=== PATIENT | female | born 1995 | race Two or more races ===

== ENCOUNTER 2016-09-12 18:18 | Outpatient (CLI) | payer OTHER ==
[2016-09-12 19:44] LABS: APPEARANCE,URINE CLOUDY; BILIRUBIN,URINE NEGATIVE (NEGATIVE); GLUCOSE, URINE NEGATIVE (NEGATIVE); KETONES,URINE NEGATIVE (NEGATIVE); LEUKOCYTE ESTERASE,URINE LARGE (NEGATIVE); NITRITE,URINE NEGATIVE (NEGATIVE); PROTEIN,URINE NEGATIVE (NEGATIVE); URINE SPECIFIC GRAVITY 1.021; UROBILINOGEN,URINE NEGATIVE mg/dL (<2.0)
[2016-09-12 19:46] LABS: ABSOLUTE BASOPHILS # (AUTO) 0.1 10^3/uL (0.0-0.2); ABSOLUTE EOSINOPHILS # (AUTO) 0.2 10^3/uL (0.0-0.6); ABSOLUTE LYMPHOCYTES (AUTO) 2.1 10^3/uL (0.5-4.7); ABSOLUTE MONOCYTES (AUTO) 1.1 10^3/uL (0.1-1.4); ABSOLUTE NEUT (AUTO) 7.5 10^3/uL (1.7-8.2); BASOPHILS % (AUTO) 0.6 % (0-2); EOSINOPHILS % (AUTO) 2.2 % (0-6); HEMATOCRIT 31.3 % (36.0-47.0); HEMOGLOBIN 10.2 g/dL (12.0-15.5); HGB HCT DIFFERENCE -0.7; MEAN CORPUSCULAR HEMOGLOBIN 27.5 pg (27.0-33.4); MEAN CORPUSCULAR HGB CONC 32.5 g/dL (32.0-36.0); MEAN CORPUSCULAR VOLUME 85 fl (80-97); MONOCYTES % (AUTO) 10.3 % (3-13); RED CELL DISTRIBUTION WIDTH 14.4 % (11.5-14.0); SEGMENTED NEUTROPHILS % (AUTO) 67.9 % (42-78); WHITE BLOOD COUNT 11.1 10^3/uL (4.0-10.5)
[2016-09-12 19:52] LABS: URINE BARBITURATES SCREEN NEGATIVE; URINE METHADONE SCREEN NEGATIVE; URINE OPIATES LOW NEGATIVE; URINE PHENCYCLIDINE SCREEN NEGATIVE
--- NOTE | 2016-09-12 20:01 | L&D Flow Sheet ---
LD Flowsheet Datetime Report Generated by CPN: 09/12/2016 20:00 Datetime: 09/12/2016 19:39 Vital Signs NBP Sys/Milena/Mean (mmHg): 106 (QS system process) : 58 (QS system process) : 76 (QS system process) Pulse: 84 (QS system process) Datetime: 09/12/2016 19:25 Communication Communication Comments: Report to A. 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 Orders received for no PNC labs and stat cervical length. (Mary Vitrano, RN) Datetime: 09/12/2016 18:42 Monitor Interventions for UA: Soso Adjusted (Mary Vitrano, RN) Frequency (min): Irregular cramping, unsure of timing (Mary Vitrano, RN) Assessment A Monitor Mode: External US (Mary Vitrano, RN) FHR Baseline Rate : 145 (Mary Vitrano, RN) Variability: Moderate 6-25 bpm (Mary Vitrano, RN) Comments: US d/c; FHTs WNL for gestational age (Mary Vitrano, RN) Pain Pain Scale: 2 (Mary Vitrano, RN) Pain Presence: Intermittent (Mary Vitrano, RN) Pain Type: Cramping (Mary Vitrano, RN) Pain Location: Abdomen (Mary Vitrano, RN) Pain Coping: Pt resting comfortably (Mary Vitrano, RN) Vaginal Exam Membrane Status: Intact (Mary Vitrano, RN) Vaginal Bleeding: None (Mary Vitrano, RN) Maternal Assessment Level of Consciousness: Fully Conscious (Mary Vitrano, RN) DTR's/Clonus: DTRs 2+; No Clonus (Mary Vitrano, RN) Headache: Denies (Mary Vitrano, RN) Breath Sounds, Left: Clear and Equal (Mary Vitrano, RN) Breath Sounds, Right: Clear and Equal (Mary Vitrano, RN) Nausea/Vomiting: Denies (Mary Vitrano, RN) RUQ Epigastric Pain: Denies (Mary Vitrano, RN) Datetime: 09/12/2016 18:39 Vital Signs NBP Sys/Milena/Mean (mmHg): 116 (QS system process) : 67 (QS system process) : 86 (QS system process) Pulse: 82 (QS system process) Datetime: 09/12/2016 18:37 Patient Care Patient Position/Activity: Semi-Fowlers (Mary Vitrano, RN) I/O Interventions: Clear Liquids Given (Mary Vitrano, RN) Teaching Instructional Method: Verbal; Patient Instructed; Family/Support Person Instructed; Verbalized Understanding (Mary Vitrano, RN) Plan of Care: Plan of Care Discussed (Mary Beard RN) Unit Routine: [place] to Room; Call Clement; Bed; Unit Personnel; Monitoring; Safety/Fall Risk Prevention; Bathroom Privileges (Mary Beard RN)
[2016-09-12 20:42] LABS: ADD HIVPANEL? NO; HIV (1 AND 2) ANTIBODY NEGATIVE (NEGATIVE)
== END 2016-09-12 20:40 | disposition home or self-care (01) ==
LOC: LC 18:18
PROVIDERS: ATTEND Obstetrics & Gynecology
PROC: 4A1HXCZ Monitoring of Products of Conception, Cardiac Rate, External Approach (ICD-10-PCS; principal; 2016-09-12)
DX: Z34.92 Encounter for supervision of normal pregnancy, unspecified, second trimester (principal)
CPT/HCPCS: 36415; 76815; 80307; 81001; 85025; 86592; 86701; 86706; 86762; 86850; 86900; 86901

== ENCOUNTER 2016-12-18 19:32 | Outpatient (CLI) | payer OTHER, MEDICAID ==
[2016-12-18 20:18] LABS: APPEARANCE,URINE CLEAR; GLUCOSE, URINE NEGATIVE (NEGATIVE); URINE SPECIFIC GRAVITY 1.013
[2016-12-18 20:19] LABS: BILIRUBIN,URINE NEGATIVE (NEGATIVE); KETONES,URINE NEGATIVE (NEGATIVE); LEUKOCYTE ESTERASE,URINE LARGE (NEGATIVE); NITRITE,URINE NEGATIVE (NEGATIVE); PROTEIN,URINE NEGATIVE (NEGATIVE); UROBILINOGEN,URINE NEGATIVE mg/dL (<2.0)
[2016-12-18] MEDS ORDERED: ONDANSETRON 4 MG TAB.RAPDIS ONE (20:28)
[2016-12-18 20:41] LABS: URINE BARBITURATES SCREEN NEGATIVE; URINE METHADONE SCREEN NEGATIVE; URINE OPIATES LOW NEGATIVE; URINE PHENCYCLIDINE SCREEN NEGATIVE
[2016-12-18] MEDS ORDERED: CEFTRIAXONE INJ 1000 MG VIAL ONE (20:54)
[2016-12-18] MEDS ORDERED: LIDOCAINE 1% INJ-PF (10 MG/ML) 30 ML SDV ONE (20:54)
--- NOTE | 2016-12-18 21:24 | Non Stress Test Report ---
Non Stress Test Datetime Report Generated by CPN: 12/18/2016 21:23 DEMOGRAPHIC Test Number: 1 EGA NST: 40.4 INDICATION Indication for Study: Other Indication for Study (NST) Other: LC MONITORING Monitor Explained: Monitor Explained; Test Explained; Patient Verbalized Understanding Time on Monitor: 12/18/2016 20:06 Time off Monitor: 12/18/2016 21:00 NST Duration: 54 NST INTERVENTIONS NST Interventions: PO Hydration; Reposition Patient Physician Notified NST: Dr Kowalski BABY A: [id number] BABY A Movement : Present Contraction Frequency : x3 FHR Baseline : 130 Accelerations : 15X15 Decelerations : None Variability : Moderate 6-25bpm NST Review: Meets Criteria for Reactive NST NST Review and Verified By : Buster Guzmán, RN NST Results: Reactive NST REPORT Report Trigger: Send Report
== END 2016-12-18 21:12 | disposition home or self-care (01) ==
LOC: EDSTATUS 19:40 → LC 19:42
PROVIDERS: ATTEND Obstetrics & Gynecology
PROC: 4A1HXCZ Monitoring of Products of Conception, Cardiac Rate, External Approach (ICD-10-PCS; principal; 2016-12-18)
DX: O47.1 False labor at or after 37 completed weeks of gestation (principal); Z3A.40 40 weeks gestation of pregnancy
CPT/HCPCS: 59025; 81005; 80307; S0119; J3490; J0696

== ENCOUNTER 2016-12-25 10:20 | Outpatient (CLI) | payer OTHER, MEDICAID ==
--- NOTE | 2016-12-25 11:21 | Non Stress Test Report ---
Non Stress Test Datetime Report Generated by CPN: 12/25/2016 11:21 DEMOGRAPHIC EGA NST: 41.4 INDICATION Indication for Study: Ordered by Provider Indication for Study (NST) Other: nst-postdates MONITORING Monitor Explained: Monitor Explained; Test Explained; Patient Verbalized Understanding Time on Monitor: 12/25/2016 10:33 Time off Monitor: 12/25/2016 11:15 NST Duration: 42 NST INTERVENTIONS NST Interventions: PO Hydration; Reposition Patient Physician Notified NST: DrFrancisco J Lilliam BABY A: [id number] BABY A Movement : Present Contraction Frequency : rare FHR Baseline : 120 Accelerations : 15X15 Decelerations : None Variability : Moderate 6-25bpm NST Review: Meets Criteria for Reactive NST NST Review and Verified By : BERT Valdez Results: Reactive NST REPORT Report Trigger: Send Report
== END 2016-12-25 11:16 | disposition home or self-care (01) ==
LOC: LC 10:20
PROVIDERS: ATTEND Student in an Organized Health Care Education/Training Program
PROC: 4A1HXCZ Monitoring of Products of Conception, Cardiac Rate, External Approach (ICD-10-PCS; principal; 2016-12-25)
DX: O48.0 Post-term pregnancy (principal); Z3A.41 41 weeks gestation of pregnancy
CPT/HCPCS: 59025

== ENCOUNTER 2016-12-27 04:11 | Inpatient (IN) | payer OTHER, MEDICAID ==
[2016-12-27 04:49] LABS: APPEARANCE,URINE SLIGHTLY-CLOUDY; BILIRUBIN,URINE NEGATIVE (NEGATIVE); GLUCOSE, URINE NEGATIVE (NEGATIVE); KETONES,URINE NEGATIVE (NEGATIVE); LEUKOCYTE ESTERASE,URINE MODERATE (NEGATIVE); NITRITE,URINE NEGATIVE (NEGATIVE); PROTEIN,URINE NEGATIVE (NEGATIVE); URINE SPECIFIC GRAVITY 1.006; UROBILINOGEN,URINE NEGATIVE mg/dL (<2.0)
[2016-12-27 05:10] LABS: URINE BARBITURATES SCREEN NEGATIVE; URINE METHADONE SCREEN NEGATIVE; URINE OPIATES LOW NEGATIVE; URINE PHENCYCLIDINE SCREEN NEGATIVE
[2016-12-27] MEDS ORDERED: RINGERS SOLUTION,LACTATED 1,000 ML IV PRN (06:19)
[2016-12-27 06:52] LABS: ABSOLUTE EOSINOPHILS # (AUTO) 0.1 10^3/uL (0.0-0.6); ABSOLUTE LYMPHOCYTES (AUTO) 1.4 10^3/uL (0.5-4.7); ABSOLUTE MONOCYTES (AUTO) 1.1 10^3/uL (0.1-1.4); ABSOLUTE NEUT (AUTO) 6.2 10^3/uL (1.7-8.2); BASOPHILS % (AUTO) 0.4 % (0-2); EOSINOPHILS % (AUTO) 1.6 % (0-6); HEMATOCRIT 31.4 % (36.0-47.0); HGB HCT DIFFERENCE -1.4; LYMPHOCYTES % (AUTO) 16.1 % (13-45); MEAN CORPUSCULAR HEMOGLOBIN 25.2 pg (27.0-33.4); MEAN CORPUSCULAR VOLUME 79 fl (80-97); MONOCYTES % (AUTO) 12.6 % (3-13); RED BLOOD COUNT 3.98 10^6/uL (3.72-5.28); RED CELL DISTRIBUTION WIDTH 14.4 % (11.5-14.0); SEGMENTED NEUTROPHILS % (AUTO) 69.3 % (42-78); WHITE BLOOD COUNT 8.9 10^3/uL (4.0-10.5)
[2016-12-27] MEDS ORDERED: MISOPROSTOL 0.2 MG TABLET ONE (07:15)
[2016-12-27] MEDS ORDERED: FENTANYL/BUPIVACAINE/NS/PF 200 MCG/100 ML RTUINJ EPI ONE (07:15)
[2016-12-27] MEDS ORDERED: LIDOCAINE 1% INJ-PF (10 MG/ML) 30 ML SDV ONE (07:15)
[2016-12-27] MEDS ORDERED: OXYTOCIN/NORMAL SALINE 20 UNIT/1,000 ML RTUINJ ONE (07:15)
[2016-12-27] MEDS ORDERED: EPHEDRINE SULFATE INJ 50 MG/1 ML AMPULE ONE (07:15)
[2016-12-27] MEDS ORDERED: BUPIVACAINE HCL 0.25 % INJ/PF (2.5 MG/1 ML) 30 ML VIAL ONE (07:16)
[2016-12-27] MEDS ORDERED: ZOLPIDEM TARTRATE 5 MG TABLET PO PRN (13:36)
[2016-12-27] MEDS ORDERED: PROMETHAZINE HCL 25 MG TABLET PO PRN (13:36)
[2016-12-27] MEDS ORDERED: ACETAMINOPHEN WITH CODEINE #3 TABLET PO PRN ×2 (13:36)
[2016-12-27] MEDS ORDERED: DIPH/PERTUSS(ACELL)/TETANUS VAC/PF 0.5 ML SYR (>=10YO) IM PRN (13:36)
[2016-12-27] MEDS ORDERED: PSEUDOEPHEDRINE HCL 30 MG TABLET PO PRN (13:36)
[2016-12-27] MEDS ORDERED: ACETAMINOPHEN 650 MG SUPP.RECT PR PRN (13:36)
[2016-12-27] MEDS ORDERED: MAGNESIUM HYDROXIDE SUSP 30 ML UDCUP PO PRN (13:36)
[2016-12-27] MEDS ORDERED: OXYTOCIN/NORMAL SALINE 1,000 ML IV PRN (13:36)
[2016-12-27] MEDS ORDERED: DIBUCAINE 1% OINTMENT 28 GM TP PRN (13:36)
[2016-12-27] MEDS ORDERED: NA PHOS,M-B/NA PHOS,DI-BA (ADULT) 133 ML ENEMA PR PRN (13:36)
[2016-12-27] MEDS ORDERED: GLYCERIN/WITCH HAZEL LEAF 1 EACH MED..PAD TP PRN (13:36)
[2016-12-27] MEDS ORDERED: BENZOCAINE/MENTHOL AEROSOL SPRAY 56 ML TOP PRN (13:36)
[2016-12-27] MEDS ORDERED: PROMETHAZINE HCL INJ 25 MG/1 ML VIAL IV PRN (13:36)
[2016-12-27] MEDS ORDERED: PROMETHAZINE HCL 25 MG SUPP.RECT PR PRN (13:36)
[2016-12-27] MEDS ORDERED: MEASLES,MUMPS&RUBELLA VACC/PF 0.5 ML VIAL SUBCUT PRN (13:36)
[2016-12-27] MEDS ORDERED: DIPHENHYDRAMINE HCL 25 MG CAPSULE PO PRN (13:36)
--- NOTE | 2016-12-27 15:40 | Admission Physical ---
Datetime Report Generated by CPN: 12/27/2016 15:39 CURRENT ADMISSION Hx Assessment: The History has been Reviewed and is Current Chief Complaint: Uterine Contractions Admit Plan: Initiate Labor Protocol ALLERGIES Medication Allergies: No Medication Allergies: No Known Drug Allergies (12/27/2016) Medication Allergies: No Known Drug Allergies (12/18/2016) Medication Allergies: No Known Drug Allergies (09/12/2016) Medication Allergies: No Known Drug Allergies (06/14/2015) Latex: No Latex Allergies Food Allergies: N/A Environmental Allergies: N/A OBSTETRICAL HISTORY EDC: 12/14/2016 00:00 : 3 Para: 1 Term: 1 : 0 SAB: 0 IAB: 1 Ectopic: 0 Livin Cesareans: 0 VBACs: 0 Multiple Births: 0 Gestational Diabetes: No Rh Sensitization: No Incompetent Cervix: No LUKE: No Infertility: No ART Treatment: No Uterine Anomaly: No IUGR: No Hx Previous C/S: No Macrosomia: No Hx Loss/Stillborn: No PIH: No Hx : No Placenta Previa/Abruption: No Depression/PP Depression: No PTL/PROM: No Post Hemorrhage: No Current Procedures: Ultrasound Obstetrical History Comments: G1: 2014 baby boy, No complications G2: 2015 EAB G3: Current, No PNC- U/S 06/2016 for dates SEE RECORDS Alcohol: No Marijuana : No Cocaine: No Other Illicit Drugs: No Cigarettes: Never Smoker. 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 Surgery: No Heart Disease: No Hosp/Surgery: Yes Autoimmune Disorder: No Anesthetic Complications: No Kidney Disease: No Abnormal Pap Smear: No Neuro/Epilepsy: No Psychiatric Disorders: No Other Medical Diseases: No Hepatitis/Liver Disease: No Significant Family History: No Varicosities/Phlebitis: No Trauma/Violence : No Thyroid Dysfunction: No Medical History Comments: childbirth x 1 INFECTIOUS HISTORY Gonorrhea: No Genital Herpes: No Chlamydia: No Tuberculosis: No Syphilis: No Hepatitis: No HIV/AIDS Exposure: No Rash or Viral Illness: No HPV: No PHYSICAL EXAM General: Normal HEENT: Normal Neurologic: Normal Thyroid: Normal Heart: Normal Lungs: Normal Breast: Normal Back: Normal Abdomen: Normal Genitourinary Exam: Normal Extremities: Normal DTRs: Normal Pelvic Type: Adequate Physical Exam Comments: efw 8 pounds 11 oz recently AROM clear, copius FETUS A EGA: 41.6 Monitoring: External US FHR Category: Category I Admit Comment: admit, pain management, augment if needed PLANS FOR LABOR AND DELIVERY Labor and Delivery: None Pain Management: Epidural Feeding Preference: Breast Benefit of Breast Feed Discussed: Yes Circumcision: N/A INFORMED CONSENT Signature: with User ID: [email or web address]
[2016-12-27] MEDS: FERROUS SULFATE 325 MG TABLET PO SCH (17:46)
[2016-12-27] MEDS: DOCUSATE SODIUM 100 MG CAPSULE PO SCH (17:46)
[2016-12-27] MEDS: IBUPROFEN 800 MG TABLET PO SCH ×2 (18:31→22:10)
[2016-12-27] MEDS: FAMOTIDINE 20 MG TABLET PO SCH (22:10)
[2016-12-28] MEDS: IBUPROFEN 800 MG TABLET PO SCH ×3 (05:34→22:10)
[2016-12-28 07:00] LABS: HEMATOCRIT 27.8 % (36.0-47.0); HEMOGLOBIN 8.8 g/dL (12.0-15.5); HGB HCT DIFFERENCE -1.4; MEAN CORPUSCULAR HEMOGLOBIN 25.1 pg (27.0-33.4); MEAN CORPUSCULAR HGB CONC 31.7 g/dL (32.0-36.0); MEAN CORPUSCULAR VOLUME 79 fl (80-97); RED CELL DISTRIBUTION WIDTH 15.1 % (11.5-14.0); WHITE BLOOD COUNT 13.6 10^3/uL (4.0-10.5)
--- NOTE | 2016-12-28 09:40 | PDOC PROGRESS REPORT ---
Subjective-OB Subjective: Post Delivery Day: 21 year old. Denies any needs at this time Doing well, no c/o, breast feeding, diet taken well, walking, scant lochia Physical Exam (OB) Vital Signs: Temp Pulse Resp BP Pulse Ox 98.9 F 80 18 123/68 100 12/27/16 20:31 12/27/16 20:31 12/27/16 20:31 12/27/16 20:31 12/27/16 20:31 Intake & Output 12/27/16 12/28/16 12/29/16 06:59 06:59 06:59 Weight 76.2 kg - Lochia Lochia Amount: Scant < 10 ml Lochia Color: Rubra/Red - Abdomen Description: Soft, Flat Hernia Present: No Fundal Description: Firm, Midline Fundal Height: u/u - u/2 Objective-Diagnostic Laboratory: 12/28/16 06:29 12/28/16 06:29 WBC 13.6 H RBC 3.50 L Hgb 8.8 L Hct 27.8 L MCV 79 L MCH 25.1 L MCHC 31.7 L RDW 15.1 H Plt Count 135 L Assessment and Plan(PN) - Assessment and Plan (1) Normal vaginal delivery Is this a current diagnosis for this admission?: Yes (2) Anemia Qualifiers: Anemia type: iron deficiency Is this a current diagnosis for this admission?: Yes - Time Spent with Patient Time with patient: Less than 15 minutes Medications reviewed and adjusted accordingly: Yes - Disposition Anticipated Discharge: Home Within: within 48 hours
[2016-12-28] MEDS: PRENATAL VITAMIN W-O CA NO5/FE FUMARATE/FA CAPSULE PO SCH (10:21)
[2016-12-28] MEDS: FERROUS SULFATE 325 MG TABLET PO SCH ×2 (10:22→17:29)
[2016-12-28] MEDS: FAMOTIDINE 20 MG TABLET PO SCH ×2 (10:22→22:09)
[2016-12-28] MEDS: SENNOSIDES/DOCUSATE 8.6-50 MG 1 EACH TABLET PO SCH (10:22)
[2016-12-28] MEDS: DOCUSATE SODIUM 100 MG CAPSULE PO SCH ×2 (10:22→17:29)
[2016-12-29] MEDS: IBUPROFEN 800 MG TABLET PO SCH ×2 (05:19→14:29)
[2016-12-29 08:18] VITALS: BP 119/62
[2016-12-29] MEDS: FERROUS SULFATE 325 MG TABLET PO SCH (10:27)
[2016-12-29] MEDS: DOCUSATE SODIUM 100 MG CAPSULE PO SCH (10:27)
[2016-12-29] MEDS: PRENATAL VITAMIN W-O CA NO5/FE FUMARATE/FA CAPSULE PO SCH (10:27)
[2016-12-29] MEDS: FAMOTIDINE 20 MG TABLET PO SCH (10:27)
[2016-12-29] MEDS: SENNOSIDES/DOCUSATE 8.6-50 MG 1 EACH TABLET PO SCH (10:28)
--- NOTE | 2016-12-29 11:50 | PDOC PROGRESS REPORT ---
Subjective-OB Subjective: Post Delivery Day: 21 year old. Denies any needs at this time s/p vaginal delivery denies weakness or dizziness hgb 8.8 ff@u-1 mild lochia well d/c home rtc 4 weeks Physical Exam (OB) Vital Signs: Temp Pulse Resp BP Pulse Ox 97.9 F 68 15 119/62 98 12/29/16 07:48 12/29/16 07:48 12/29/16 07:48 12/29/16 07:48 12/29/16 07:48 - PIH/Pre-Eclampsia Clonus: Negative - Lochia Lochia Amount: Scant < 10 ml Lochia Color: Rubra/Red - Abdomen Description: Soft Hernia Present: No Fundal Description: Firm Fundal Height: 1/u - 2/u Objective-Diagnostic Laboratory: 12/28/16 06:29 Assessment and Plan(PN) - Time Spent with Patient Medications reviewed and adjusted accordingly: Yes - Disposition Anticipated Discharge: Home
--- NOTE | 2016-12-29 11:54 | PDOC DISCHARGE SUMMARY ---
Final Diagnosis Discharge Date: 12/29/16 - Final Diagnosis (1) Anemia Is this a current diagnosis for this admission?: Yes (2) Normal vaginal delivery Is this a current diagnosis for this admission?: Yes Discharge Data - Discharge Medication Home Medications: Docusate Sodium [Colace 100 mg Capsule] 100 mg PO BID #90 capsule 12/29/16 Ferrous Sulfate [Feosol 325 mg Tablet] 325 mg PO BID #120 tablet 12/29/16 Ibuprofen [Motrin 800 mg Tablet] 800 mg PO Q8 #90 tablet 12/29/16 Reason(s) for Admission: Onset of Labor Intrapartum Procedure(s): Spontaneous Vaginal Delivery Complication(s): Laceration-Labial - Diagnosis Test Laboratory: Temp Pulse Resp BP Pulse Ox 97.9 F 68 15 119/62 98 12/29/16 07:48 12/29/16 07:48 12/29/16 07:48 12/29/16 07:48 12/29/16 07:48 12/27/16 12/27/16 12/28/16 04:21 06:36 06:29 RBC 3.98 3.50 L Hgb 10.0 L 8.8 L Hct 31.4 L 27.8 L Urine Opiates Screen NEGATIVE - Discharge information/Instructions Discharge Activity: Activity As Tolerated Discharge Diet: Regular Disposition: HOME, SELF-CARE Follow up with: [facility] in: 4
--- NOTE | 2016-12-30 15:24 | Delivery Summary ---
Del Sum A-C Datetime Report Generated by CPN: 12/30/2016 15:24 DELIVERY PERSONNEL DELIVERY PERSONNEL: [id number];[id number] DELIVERY PERSONNEL: [id number] DELIVERY PERSONNEL: [id number] Delivery Doctor:: Rashid Plummer MD Labor and Delivery Nurse:: TRAN Sheikh Labor and Delivery Nurse:: BERT Julian/PATHOLOGY LABORATORY TECHNOLOGIST: Camila Dickson CONTINUITY TESTER MATERNAL INFORMATION Delivery Anesthesia: Epidural Medications After Delivery: Pitocin Drip 20 Units/1000ml NSS Estimated Blood Loss (ml): 250 Maternal Complications: None LABOR SUMMARY EDC: 12/14/2016 00:00 No. Babies in Womb: 1 Attempted: No Labor Anesthesia: Intrathecal LABOR INFORMATION Reason for Induction: Not Applicable Onset of Labor: 12/27/2016 08:00 Complete Dilatation: 12/27/2016 12:40 Oxytocin: Augmentation Group B Beta Strep: negative Reason Steroids Not Administered: Not Applicable MEMBRANES Membranes Rupture Method: Artificial Rupture of Membranes: 12/27/2016 06:40 Length of Rupture (hr): 6.55 Amniotic Fluid Color: Clear Amniotic Fluid Amount: Large Amniotic Fluid Odor: Normal STAGES OF LABOR Stage 1 hr: 4 Stage 1 min: 40 Stage 2 hr: 0 Stage 2 min: 33 Stage 3 hr: 0 Stage 3 min: 0 Total Time in Labor hr: 5 Total Time in Labor min: 13 VAGINAL DELIVERY Episiotomy: None Laceration Extension: N/A Other Laceration: right labial Laceration Repair: Yes Laceration Repair Note: one 3-0 chromic suture Sponge Count Correct: Yes Sharps Count Correct: Yes BABY A INFORMATION Delivery Date/Time: 12/27/2016 13:13 Method of Delivery: Vaginal Born in Route : No (Annotations: Data stored by [facility] on behalf of user) : N/A Forceps: N/A Vacuum Extraction: N/A Shoulder Dystocia : No PRESENTATION/POSITION BABY A Presentation: Cephalic Cephalic Presentation: Vertex Vertex Position: Occipital Posterior Breech Presentation: N/A PLACENTA INFORMATION BABY A Placenta Delivery Time : 12/27/2016 13:13 Placenta Method of Delivery: Spontaneous Placenta Status: Delivered SCORES BABY A Heart Rate 1 min: >100 bpm Resp Effort 1 min: Good Cry Reflex Irritability 1 min: Cough or Sneeze or Pulls Away Muscle Tone 1 min: Active Motion Color 1 min: Blue/Pale Resuscitation Effort 1 min: Tactile Stimulation SCORE 1 MIN: 8 Heart Rate 5 min: >100 bpm Resp Effort 5 min: Good Cry Reflex Irritability 5 min: Cough or Sneeze or Pulls Away Muscle Tone 5 min: Active Motion Color 5 min: Body [place], Extremities Blue Resuscitation Effort 5 min: Tactile Stimulation SCORE 5 MIN: 9 INFANT INFORMATION BABY A Gestational Age at Delivery: 41.6 Gestational Status: Late Term- 41- 41.6 Weeks Infant Outcome : Liveborn Infant Condition : Stable Sex: Female IDENTIFICATION BABY A Verification Date/Time: 12/20/2016 14:04 ID Band Number: [id number] Mother's Name Verified: Yes Infant RN Verifying : D Belltaliance RNC/H Abels RN WEIGHT/LENGTH BABY A Birthweight (gm): 3901 Weight (lb): 8 Weight (oz): 10 Length (in): 21.00 Length (cm): 53.34 CORD INFORMATION BABY A No. Cord Vessels: 3 Nuchal Cord : N/A Cord Blood Taken: Yes-For Eval (Mom's Blood Type - or O+) Infant Suction: Mouth ASSESSMENT BABY A Complications: None Physical Findings at Delivery: Molding of the Head Infant Respirations: Appears Normal Skin to Skin: Yes Skin to Skin Time (min): 60 Hyperbaric Technologist/ALS Called : No Infant Care By: Buster Monte RN Transferred To: Remains with Mother SIGNATURES Signature: with User ID: [email or web address]
== END 2016-12-29 15:34 | disposition home or self-care (01) | DRG 775 ==
LOC: LC 04:11 → LR 06:17 → 2S 15:38
PROVIDERS: ADMIT Specialist; ATTEND Specialist
PROC: 10E0XZZ Delivery of Products of Conception, External Approach (ICD-10-PCS; principal; 2016-12-27)
PROC: 0HQ9XZZ Repair Perineum Skin, External Approach (ICD-10-PCS; 2016-12-27)
PROC: 10907ZC Drainage of Amniotic Fluid, Therapeutic from Products of Conception, Via Natural or Artificial Opening (ICD-10-PCS; 2016-12-27)
DX: O70.0 First degree perineal laceration during delivery (principal); Z3A.41 41 weeks gestation of pregnancy; Z37.0 Single live birth; O99.02 Anemia complicating childbirth; D64.9 Anemia, unspecified
CPT/HCPCS: 36415; 80307; 81005; 85025; 85027; 86592; 86850; 86900; 86901; J2590; J3490